=== PATIENT | male | born 1960 | race Two or more races ===

== ENCOUNTER 2021-06-11 09:26 | Emergency (ER) | payer OTHER ==
[2021-06-11 15:36] LABS: SARS-CoV-2 PCR by NAA DETECTED (NotDetected)
== END 2021-06-11 12:50 | disposition home or self-care (01) ==
LOC: ERS 09:26
DX: U07.1 COVID-19 (principal); I10 Essential (primary) hypertension; E78.5 Hyperlipidemia, unspecified; E11.9 Type 2 diabetes mellitus without complications; Z87.891 Personal history of nicotine dependence
CPT/HCPCS: 71045; U0003; U0005